=== PATIENT | male | born 1955 | race Hispanic/Latino ===

== ENCOUNTER 2017-12-01 10:28 | Emergency (ER) | payer SELFPAY ==
[~2017-12-01] VITALS: Ht 165.1 cm; Wt 59.0 kg
[2017-12-01] MEDS ORDERED: BACTRIM DS1 TAB PO (13:15)
[2017-12-01] MEDS ORDERED: no home meds (13:26)
[2017-12-01 13:40] LABS: HEMATOCRIT 38.5 % (39.0-50.0); HEMOGLOBIN 12.4 g/dl (14.0-18.0); IMMATURE GRANULOCYTES 0.3 % (0.0-1.0); MEAN CELL VOLUME 92.3 fL CALC (80.0-100.0); MEAN CORPUSCULAR HGB 29.7 pG CALC (26.0-32.0); MEAN CORPUSCULAR HGB CONC 32.2 g/L CALC (32.0-36.0); NEUT# 3.9 thou/uL (1.82-7.42); RED BLOOD COUNT 4.17 mill/uL (4.70-6.10); RED CELL DISTRI WIDTH 13.8 % (11.5-15.5)
[2017-12-01 13:59] LABS: ALBUMIN 4.5 g/dL (3.2-5.0); ALKALINE PHOSPHATASE 162 u/l (38-126); ANION GAP 18 (6-22 (CALC)); BILIRUBIN, TOTAL 0.9 mg/dL (0.0-1.4); BUN 12 mg/dL (8-23); BUN/CREATININE RATIO 18 (12-20 (CALC)); CARBON DIOXIDE 23 mmol/l (22-30); CHLORIDE 105 mmol/l (95-108); CREATININE 0.7 mg/dL (0.7-1.3); GFR > 60 ML/MIN (>=60 (CALC)); GFR FOR AFR.AMER. > 60 ML/MIN (>=60 (CALC)); POTASSIUM 3.9 mmol/l (3.5-5.1); SGOT/AST 32 u/l (19-48); SGPT/ALT 51 u/l (11-66); SODIUM 142 mmol/l (137-146); TOTAL PROTEIN 8.1 g/dL (6.3-8.2)
[2017-12-01 14:46] VITALS: BP 133/77
== END 2017-12-01 15:50 | disposition home or self-care (01) | DRG 921 ==
LOC: ED 10:28
PROVIDERS: Emergency Medicine
DX: T85.79XA Infection and inflammatory reaction due to other internal prosthetic devices, implants and grafts, initial encounter (principal); B95.7 Other staphylococcus as the cause of diseases classified elsewhere; R22.42 Localized swelling, mass and lump, left lower limb; V89.2XXD Person injured in unspecified motor-vehicle accident, traffic, subsequent encounter